=== PATIENT | female | born 1975 | race Caucasian/White ===

== ENCOUNTER 2023-03-02 12:16 | Emergency (ER) | payer OTHER, MEDICAID, SELFPAY ==
[2023-03-02 12:24] VITALS: BP 145/88; PULSE 83; RESP 18; TEMP 37.2; O2SAT 98; BMI 35.7
--- NOTE | 2023-03-02 13:28 | ED.GENADUL1 ---
Documented by User: MERCEDES Corado 03/02/23 15:17 HPI - General Adult General Chief complaint: Headache Stated complaint: MIGRANE Time Seen by Provider: 03/02/23 13:13 Source: patient Mode of arrival: walk-in Limitations: no limitations History of Present Illness HPI narrative: patient is a 47-year-old female with a history of chronic migraine syndrome who presents to the Emergency Room for breakthrough migraine. She states she is on an injectable medication to prevent migraines since July which has drastically decreased the frequency of her migraines. She states she has had a migraine since 5 PM last night which was not relieved with her Ubrelvy. She denies vomiting, fevers, upper respiratory symptoms. She denies visual changes, peripheral paresthesias. She states her headache is located in the posterior head and radiates to the top of the skull and frontal scalp. This is typical of her previous headaches. No injuries or traumas. Related Data Home Medications Medication Instructions Recorded Confirmed cetirizine 10 mg tablet 10 mg PO DAILY 03/02/23 03/02/23 cyclobenzaprine 5 mg tablet 5 mg PO .QHS 03/02/23 03/02/23 dextroamphetamine-amphetamine ER 30 mg PO DAILY 03/02/23 03/02/23 30 mg 24hr capsule,extend release diltiazem HCl 120 mg 120 mg PO Q24H 03/02/23 03/02/23 capsule,extended release 24 hr, controlled losartan 100 mg tablet 100 mg PO DAILY 03/02/23 03/02/23 montelukast 10 mg tablet 10 mg PO DAILY 03/02/23 03/02/23 oxcarbazepine 300 mg tablet 600 mg PO .QHS 03/02/23 03/02/23 ubrogepant 50 mg tablet (Ubrelvy) 50 mg PO 03/02/23 Allergies Allergy/AdvReac Type Severity Reaction Status Date / Time ibuprofen [From Advil] Allergy Severe Anaphylaxis Verified 03/02/23 12:24 hydromorphone [From Dilaudid] AdvReac Intermediate itching Verified 03/02/23 12:24 blueberries Allergy Severe Anaphylaxis Uncoded 03/02/23 12:24 Review of Systems ROS Constitutional Denies: fever or chills Ears, nose, mouth, and throat Denies: throat pain or neck pain Respiratory Denies: shortness of breath or cough Gastrointestinal Denies: nausea or vomiting Musculoskeletal Denies: back pain or neck pain Neurological Reports: headache; Denies: numbness in extremities or weakness in extremities Hematologic/Lymphatic Denies: easy bruising PFSH PFSH Social History Smoking status: Former smoker Exam Narrative Exam Narrative: Gen.: Awake, alert, in no distress Head: Normocephalic, atraumatic ENT: Moist mucous membranes, no nuchal rigidity or meningismus Respiratory: No respiratory distress, lungs clear bilaterally Cardio: Regular rate and rhythm Extremities: Moves extremities equally Psych: Normal mood and affect Neuro: No focal neuro deficit Skin: Warm, dry, intact Constitutional Vital Signs, click to edit/add: Last Vital Signs Temp 98.9 F 03/02/23 12:24 Pulse 70 03/02/23 15:31 Resp 18 03/02/23 15:31 BP 115/79 03/02/23 15:31 Pulse Ox 100 03/02/23 15:31 O2 Del Method Room Air 03/02/23 15:31 Course Vital Signs Vital signs: Vital Signs Temperature 98.9 F 03/02/23 12:24 Pulse Rate 83 03/02/23 12:24 Respiratory Rate 18 03/02/23 12:24 Blood Pressure 145/88 H 03/02/23 12:24 Pulse Oximetry 98 03/02/23 12:24 Oxygen Delivery Method Room Air 03/02/23 12:24 Temperature 98.9 F 03/02/23 12:24 Pulse Rate 70 03/02/23 15:31 Respiratory Rate 18 03/02/23 15:31 Blood Pressure 115/79 03/02/23 15:31 Pulse Oximetry 100 03/02/23 15:31 Oxygen Delivery Method Room Air 03/02/23 15:31 Medical Decision Making MDM Narrative Medical decision making narrative: patient medicated with IV fluids, Reglan, Benadryl, Decadron, Norflex. On reevaluation, pain is 2/10. She is discharged home to follow-up with PCP and continue regular migraine medications. Return to the Emergency Room if symptoms change or worsen Medical Records Medical records reviewed: Yes I reviewed the patient's medical records Discharge Plan Discharge Chief Complaint: Headache Clinical Impression: Headache Patient Disposition: Home, Self-Care Time of Disposition Decision: 15:17 Condition: Good Prescriptions / Home Meds: No Action cetirizine 10 mg tablet 10 mg PO DAILY cyclobenzaprine 5 mg tablet 5 mg PO .QHS montelukast 10 mg tablet 10 mg PO DAILY oxcarbazepine 300 mg tablet 600 mg PO .QHS losartan 100 mg tablet 100 mg PO DAILY diltiazem HCl 120 mg capsule,ext.rel 24h degradable 120 mg PO Q24H dextroamphetamine-amphetamine 30 mg capsule,extended release 24hr 30 mg PO DAILY Ubrelvy 50 mg tablet 50 mg PO Patient Comments: ONCE EVERY 2 HRS UP TO 4 TABLETS IN 24HRS Instructions: Acute Headache (ED) Stand Alone Forms: Portal Instructions Referrals: Mariam Velasquez [Primary Care Provider] - 1 week Discharge Date/Time: 03/02/23 15:35 Documented by User: Erika Vázquez MD 03/03/23 07:58 HPI - General Adult General Chief complaint: Headache Stated complaint: MIGRANE Time Seen by Provider: 03/02/23 13:13 Related Data Home Medications Medication Instructions Recorded Confirmed cetirizine 10 mg tablet 10 mg PO DAILY 03/02/23 03/02/23 cyclobenzaprine 5 mg tablet 5 mg PO .QHS 03/02/23 03/02/23 dextroamphetamine-amphetamine ER 30 mg PO DAILY 03/02/23 03/02/23 30 mg 24hr capsule,extend release diltiazem HCl 120 mg 120 mg PO Q24H 03/02/23 03/02/23 capsule,extended release 24 hr, controlled losartan 100 mg tablet 100 mg PO DAILY 03/02/23 03/02/23 montelukast 10 mg tablet 10 mg PO DAILY 03/02/23 03/02/23 oxcarbazepine 300 mg tablet 600 mg PO .QHS 03/02/23 03/02/23 ubrogepant 50 mg tablet (Ubrelvy) 50 mg PO 03/02/23 Allergies Allergy/AdvReac Type Severity Reaction Status Date / Time ibuprofen [From Advil] Allergy Severe Anaphylaxis Verified 03/02/23 12:24 hydromorphone [From Dilaudid] AdvReac Intermediate itching Verified 03/02/23 12:24 blueberries Allergy Severe Anaphylaxis Uncoded 03/02/23 12:24 PFSH [facility] Social History Smoking status: Former smoker Exam Constitutional Vital Signs, click to edit/add: Last Vital Signs Temp 98.9 F 03/02/23 12:24 Pulse 70 03/02/23 15:31 Resp 18 03/02/23 15:31 BP 115/79 03/02/23 15:31 Pulse Ox 100 03/02/23 15:31 O2 Del Method Room Air 03/02/23 15:31 Course Vital Signs Vital signs: Vital Signs Temperature 98.9 F 03/02/23 12:24 Pulse Rate 83 03/02/23 12:24 Respiratory Rate 18 03/02/23 12:24 Blood Pressure 145/88 H 03/02/23 12:24 Pulse Oximetry 98 03/02/23 12:24 Oxygen Delivery Method Room Air 03/02/23 12:24 Temperature 98.9 F 03/02/23 12:24 Pulse Rate 70 03/02/23 15:31 Respiratory Rate 18 03/02/23 15:31 Blood Pressure 115/79 03/02/23 15:31 Pulse Oximetry 100 03/02/23 15:31 Oxygen Delivery Method Room Air 03/02/23 15:31 Medical Decision Making MDM Narrative Medical decision making narrative: patient medicated with IV fluids, Reglan, Benadryl, Decadron, Norflex. On reevaluation, pain is 2/10. She is discharged home to follow-up with PCP and continue regular migraine medications. Return to the Emergency Room if symptoms change or worsen Attending physician attestation I have reviewed the mid-level documentation, agree with the documentation, medical decision making and treatment plan as outlined by the mid-level provider. Discharge Plan Discharge Chief Complaint: Headache Clinical Impression: Headache Patient Disposition: Home, Self-Care Time of Disposition Decision: 15:17 Condition: Good Prescriptions / Home Meds: No Action cetirizine 10 mg tablet 10 mg PO DAILY cyclobenzaprine 5 mg tablet 5 mg PO .QHS montelukast 10 mg tablet 10 mg PO DAILY oxcarbazepine 300 mg tablet 600 mg PO .QHS losartan 100 mg tablet 100 mg PO DAILY diltiazem HCl 120 mg capsule,ext.rel 24h degradable 120 mg PO Q24H dextroamphetamine-amphetamine 30 mg capsule,extended release 24hr 30 mg PO DAILY Ubrelvy 50 mg tablet 50 mg PO Patient Comments: ONCE EVERY 2 HRS UP TO 4 TABLETS IN 24HRS Instructions: Acute Headache (ED) Stand Alone Forms: Portal Instructions Referrals: Mariam Velasquez [Primary Care Provider] - 1 week Discharge Date/Time: 03/02/23 15:35
[2023-03-02] MEDS: 0.9 % SODIUM CHLORIDE 1,000 ML 1000 ML IV (13:56)
[2023-03-02] MEDS: DIPHENHYDRAMINE HCL 50 MG/ML (1ML) VIAL 25 MG IV (13:57)
[2023-03-02] MEDS: METOCLOPRAMIDE HCL 10 MG/2 ML VIAL INJ (13:58)
[2023-03-02] MEDS: ORPHENADRINE 60 MG/ 2 ML VIAL IV (13:58)
[2023-03-02] MEDS: DEXAMETHASONE SODIUM PHOSPHATE 10 MG/ML VIAL IV (14:27)
[2023-03-02 14:37] VITALS: BP 145/79; RESP 18; O2SAT 96
[2023-03-02 15:31] VITALS: BP 115/79; PULSE 70; RESP 18; O2SAT 100
== END 2023-03-02 15:35 | disposition home or self-care (01) ==
PROVIDERS: Emergency Provider Emergency Medicine; PCP Nurse Practitioner
DX: R51.9 Headache, unspecified (principal); Z79.899 Other long term (current) drug therapy; Z87.891 Personal history of nicotine dependence
CPT/HCPCS: 96372; 96374; 96375; 99284; J1100

== ENCOUNTER 2023-10-10 21:13 | Outpatient (REF) | payer MEDICAID, SELFPAY ==
[2023-10-13 21:16] LABS: Age Gdln ACOG Testing Note (.); HPV Aptima Negative (Negative); IGP, Aptima HPV, rfx 16/18,45 Note (.)
== END 2023-10-10 21:14 | disposition home or self-care (01) ==
LOC: LAB 21:13
PROVIDERS: PCP Nurse Practitioner; Visit Provider Nurse Practitioner
DX: Z01.419 Encounter for gynecological examination (general) (routine) without abnormal findings (principal)
CPT/HCPCS: G0145